=== PATIENT | female | born 1995 | race Caucasian/White ===

== ENCOUNTER 2016-09-23 19:43 | Emergency (ER) | payer OTHER | END 2016-09-23 22:15 | disposition home or self-care (01) | LOC: ER 19:43 | DX: J20.9 Acute bronchitis, unspecified (principal); G47.00 Insomnia, unspecified; F90.9 Attention-deficit hyperactivity disorder, unspecified type | CPT/HCPCS: 36415 ==

== ENCOUNTER 2016-10-19 20:02 | Emergency (ER) | payer OTHER | END 2016-10-19 21:49 | disposition home or self-care (01) | LOC: ER 20:02 | DX: R11.2 Nausea with vomiting, unspecified (principal); R19.7 Diarrhea, unspecified; F90.9 Attention-deficit hyperactivity disorder, unspecified type; Z79.899 Other long term (current) drug therapy ==